=== PATIENT | female | born 1940 | race Caucasian/White ===

== ENCOUNTER → 2016-06-19 | Outpatient (CLI) | payer MEDICARE, BC ==
[~2016-06-19] MED LIST: ANTIVERT 25MG25 MG PO; AZOR 5 MG-40 MG1 TAB PO; AZULFIDINE500 MG/TAB PO; BYSTOLIC10 MG PO; BYSTOLIC5 MG PO; CALCIUM 600MG+D1 TAB PO; CALCIUM1 CAP PO; COUMADIN 1MG1 MG/TAB PO; COUMADIN 5MG5 MG/TAB PO; IMODIUMSUSP PO; K-DUR20 MEQ PO; LEVOXYL0.1 MG PO; LEXAPRO20 MG PO; LOMOTIL 0.025 M1 TAB PO; MULTAQ400 MG PO; PRAVACHOL 20MG20 MG PO; PROTONIX 40MG T40 MG PO; VALIUM 2MG T2 MG/TAB PO; VESICARE 5MG5 MG PO; VITAMIN D31 LIQ
== END ==
LOC: COL.VAS 08:53
DX: I70.1 Atherosclerosis of renal artery (principal); N13.39 Other hydronephrosis; I10 Essential (primary) hypertension

== ENCOUNTER → 2017-03-05 | Outpatient (CLI) | payer MEDICARE, BC | LOC: MC.RAD 10:00 | DX: Z98.82 Breast implant status (principal) ==

== ENCOUNTER → 2017-04-29 | Outpatient (CLI) | payer MEDICARE, BC ==
[~2017-04-29] MED LIST changes: +COUMADIN 2MG2 MG/TAB PO; +COZAAR100 MG PO; +LIORESAL 1010 MG/TAB PO; +NORVASC 5MG5 MG/TAB PO; +OS-CAL 500 + D1 TAB PO; +PRILOSEC 20MG20 MG PO; +SYNTHROID0.125 MG/T PO; +TAMBOCOR 1100 MG/TAB PO
== END ==
LOC: MHCPAIN 10:13
DX: G89.29 Other chronic pain (principal); M47.27 Other spondylosis with radiculopathy, lumbosacral region; M53.3 Sacrococcygeal disorders, not elsewhere classified; G57.00 Lesion of sciatic nerve, unspecified lower limb; F17.210 Nicotine dependence, cigarettes, uncomplicated
CPT/HCPCS: G0463

== ENCOUNTER → 2017-05-13 | Outpatient (CLI) | payer MEDICARE, BC | LOC: MHCPAIN 10:54 | DX: G57.03 Lesion of sciatic nerve, bilateral lower limbs (principal) | CPT/HCPCS: J1040 ==

== ENCOUNTER → 2017-06-12 | Outpatient (CLI) | payer MEDICARE, BC | LOC: MHCPAIN 10:32 | DX: G89.29 Other chronic pain (principal); M47.27 Other spondylosis with radiculopathy, lumbosacral region; M53.3 Sacrococcygeal disorders, not elsewhere classified; M41.9 Scoliosis, unspecified; F17.210 Nicotine dependence, cigarettes, uncomplicated | CPT/HCPCS: G0463 ==

== ENCOUNTER → 2017-07-07 | Outpatient (CLI) | payer MEDICARE, BC | LOC: MHCPAIN 11:19 | DX: G89.29 Other chronic pain (principal); M47.817 Spondylosis without myelopathy or radiculopathy, lumbosacral region; M54.16 Radiculopathy, lumbar region; M53.3 Sacrococcygeal disorders, not elsewhere classified; M41.9 Scoliosis, unspecified | CPT/HCPCS: G0463 ==

== ENCOUNTER → 2017-07-27 | Outpatient (CLI) | payer MEDICARE, BC | LOC: MHCPAIN 12:14 | DX: G57.01 Lesion of sciatic nerve, right lower limb (principal); M47.817 Spondylosis without myelopathy or radiculopathy, lumbosacral region | CPT/HCPCS: 64646; J0585 ==

== ENCOUNTER 2017-08-26 14:45 | Outpatient (RCR) | payer MEDICARE, BC | END 2017-09-07 | LOC: WSPT | DX: G89.29 Other chronic pain (principal); M54.16 Radiculopathy, lumbar region; G57.00 Lesion of sciatic nerve, unspecified lower limb; M53.3 Sacrococcygeal disorders, not elsewhere classified; M47.817 Spondylosis without myelopathy or radiculopathy, lumbosacral region; M25.552 Pain in left hip; M25.551 Pain in right hip | CPT/HCPCS: G8978-GP; G8979-GP ==

== ENCOUNTER → 2017-08-28 | Outpatient (CLI) | payer MEDICARE, BC | LOC: MHCPAIN 10:32 | DX: G89.29 Other chronic pain (principal); M47.817 Spondylosis without myelopathy or radiculopathy, lumbosacral region; M54.16 Radiculopathy, lumbar region; M53.3 Sacrococcygeal disorders, not elsewhere classified; M41.9 Scoliosis, unspecified | CPT/HCPCS: G0463 ==

== ENCOUNTER 2017-09-09 08:30 | Outpatient (RCR) | payer MEDICARE, BC | END 2017-09-12 09:28 | disposition home or self-care (01) | LOC: WSPT 08:30 | DX: G89.29 Other chronic pain (principal); M54.16 Radiculopathy, lumbar region; M53.3 Sacrococcygeal disorders, not elsewhere classified; M47.817 Spondylosis without myelopathy or radiculopathy, lumbosacral region ==

== ENCOUNTER → 2017-10-21 | Outpatient (CLI) | payer MEDICARE, BC | LOC: MHCPAIN 09:57 | DX: G89.29 Other chronic pain (principal); M47.817 Spondylosis without myelopathy or radiculopathy, lumbosacral region; M54.16 Radiculopathy, lumbar region; M53.3 Sacrococcygeal disorders, not elsewhere classified; M41.9 Scoliosis, unspecified | CPT/HCPCS: G0463 ==

== ENCOUNTER → 2018-01-29 | Outpatient (CLI) | payer MEDICARE, BC | LOC: MHCPAIN 10:39 | DX: G89.29 Other chronic pain (principal); M47.817 Spondylosis without myelopathy or radiculopathy, lumbosacral region; M54.16 Radiculopathy, lumbar region; M53.3 Sacrococcygeal disorders, not elsewhere classified | CPT/HCPCS: G0463 ==

== ENCOUNTER 2018-01-31 20:56 | Emergency (ER) | payer MEDICARE, BC ==
[~2018-01-31] VITALS: Ht 165.1 cm; Wt 65.0 kg
[2018-01-31 20:59] VITALS: TEMP 97.7
[2018-01-31 22:00] LABS: BASO # 0.1 (0.0-0.2); BASO % 1.3 % (0.0-2.0); EOS # 0.1 (0.0-0.7); EOS % 1.9 % (0-4.0); GRAN # 1.8 (1.4-6.5); HEMATOCRIT 38.7 % (37.0-47.0); HEMOGLOBIN 12.9 g/dl (12.5-16.0); LYMPH # 1.2 (1.2-3.4); LYMPH % 32.8 % (20.0-51.0); MEAN CELL VOLUME 94 fl (80.0-100.0); MEAN CORPUSCULAR HEMOGLOBIN 32 pg (27.0-31.0); MEAN CORPUSCULAR HGB CONC 33 g/dl (33.0-37.0); MEAN PLATELET VOLUME 9.4 fl (7.4-10.4); MONO # 0.6 (0.1-0.6); MONO % 15.5 % (1.7-9.3); PLATELET COUNT 246 K/mm3 (130-400); REDCELL DISTRIBUTION WIDTH-CV 13.2 % (11.5-14.5)
[2018-01-31 22:06] LABS: ALANINE AMINOTRANSFERASE 26 U/L (9-52); ALBUMIN 3.7 gm/dL (3.5-5.0); ALKALINE PHOSPHATASE 53 U/L (50-136); ANION GAP 5 mmol/L (7-16); AST,SGOT 27 U/L (15-37); BILIRUBIN,TOTAL 0.4 mg/dL (0.0-1.0); BLOOD UREA NITROGEN 12 mg/dL (7-17); CALCIUM 8.8 mg/dL (8.4-10.2); CARBON DIOXIDE 29 mmol/L (22-30); CHLORIDE 95 mmol/L (98-107); CREATININE, serum 0.59 mg/dL (0.52-1.25); GLUCOSE 94 mg/dL (74-106); INR 2.1 (0.8-3.0); POTASSIUM 3.8 mmol/L (3.4-5.0); PROTHROMBIN TIME 24.2 SECONDS (9.7-12.8); SODIUM 130 mmol/L (137-145); TOTAL PROTEIN 6.9 gm/dL (6.4-8.2)
[2018-01-31 22:23] LABS: TROPONIN-I < 0.012 ng/mL (0.000-0.034)
[2018-01-31 22:42] VITALS: BP 143/76; PULSE 62
== END 2018-01-31 22:54 | disposition home or self-care (01) ==
LOC: COL.ER 20:56
PROVIDERS: Emergency Medicine
DX: I10 Essential (primary) hypertension (principal); I48.91 Unspecified atrial fibrillation; E78.5 Hyperlipidemia, unspecified; Z79.01 Long term (current) use of anticoagulants; Z86.73 Personal history of transient ischemic attack (TIA), and cerebral infarction without residual deficits

== ENCOUNTER 2018-02-01 14:52 | Observation (INO) | payer MEDICARE, BC ==
[~2018-02-01] VITALS: Ht 165.1 cm; Wt 65.9 kg
[2018-02-01 15:50] VITALS: BP 113/62; PULSE 59
[2018-02-01 16:14] LABS: COLLECTION METHOD CLEAN CATCH
[2018-02-01 16:27] LABS: HYALINE CAST >12 /lpf; MUCOUS Present /lpf; PH 6 (5-8); SQUAMOUS EPITHELIAL None Seen /hpf; URINE APPEARANCE Clear; URINE BACTERIA None Seen /hpf; URINE BILIRUBIN Negative (NEGATIVE); URINE BLOOD Negative (NEGATIVE); URINE COLOR Yellow; URINE GLUCOSE Negative (NEGATIVE); URINE KETONE Negative (NEGATIVE); URINE LEUKOCYTE ESTERASE Negative (NEGATIVE); URINE NITRATE Negative (NEGATIVE); URINE PROTEIN(semi-quant) 1+ (NEGATIVE); URINE RBC 0-2 /hpf; URINE UROBILINOGEN Negative (NEGATIVE)
[2018-02-01 17:04] LABS: BASO % 0.7 % (0.0-2.0); EOS % 0.7 % (0-4.0); GRAN # 3.9 (1.4-6.5); GRAN % 71.9 % (42.2-75.2); HEMATOCRIT 37.1 % (37.0-47.0); HEMOGLOBIN 12.6 g/dl (12.5-16.0); LYMPH # 0.9 (1.2-3.4); LYMPH % 16.5 % (20.0-51.0); MEAN CELL VOLUME 92 fl (80.0-100.0); MEAN CORPUSCULAR HEMOGLOBIN 31 pg (27.0-31.0); MEAN CORPUSCULAR HGB CONC 34 g/dl (33.0-37.0); MEAN PLATELET VOLUME 9.2 fl (7.4-10.4); MONO # 0.5 (0.1-0.6); MONO % 9.8 % (1.7-9.3); PLATELET COUNT 221 K/mm3 (130-400); RED BLOOD COUNT 4.03 M/mm3 (4.10-5.30); REDCELL DISTRIBUTION WIDTH-CV 13.2 % (11.5-14.5)
[2018-02-01 17:16] LABS: ALANINE AMINOTRANSFERASE 29 U/L (9-52); ALBUMIN 3.6 gm/dL (3.5-5.0); ALKALINE PHOSPHATASE 47 U/L (50-136); ANION GAP 7 mmol/L (7-16); AST,SGOT 22 U/L (15-37); BILIRUBIN,TOTAL 0.3 mg/dL (0.0-1.0); BLOOD UREA NITROGEN 12 mg/dL (7-17); CALCIUM 8.7 mg/dL (8.4-10.2); CARBON DIOXIDE 30 mmol/L (22-30); CHLORIDE 95 mmol/L (98-107); GLUCOSE 91 mg/dL (74-106); MAGNESIUM 1.9 mg/dL (1.6-2.3); POTASSIUM 3.5 mmol/L (3.4-5.0); SODIUM 131 mmol/L (137-145); TOTAL PROTEIN 6.8 gm/dL (6.4-8.2)
[2018-02-01 17:24] VITALS: BP 150/68; PULSE 62; TEMP 98.2
[2018-02-01 17:31] LABS: TROPONIN-I < 0.012 ng/mL (0.000-0.034)
[2018-02-01 20:30] VITALS: BP 159/70; PULSE 66; TEMP 98.7
[2018-02-02 01:21] VITALS: BP 141/81; PULSE 59; TEMP 98.3
[2018-02-02 07:27] LABS: EOS # 0.1 (0.0-0.7); EOS % 1.8 % (0-4.0); GRAN # 1.7 (1.4-6.5); GRAN % 43.7 % (42.2-75.2); HEMATOCRIT 37.4 % (37.0-47.0); HEMOGLOBIN 12.4 g/dl (12.5-16.0); LYMPH # 1.6 (1.2-3.4); LYMPH % 38.9 % (20.0-51.0); MEAN CELL VOLUME 94 fl (80.0-100.0); MEAN CORPUSCULAR HEMOGLOBIN 31 pg (27.0-31.0); MEAN CORPUSCULAR HGB CONC 33 g/dl (33.0-37.0); MEAN PLATELET VOLUME 9.5 fl (7.4-10.4); MONO # 0.6 (0.1-0.6); MONO % 14.3 % (1.7-9.3); PLATELET COUNT 219 K/mm3 (130-400); RED BLOOD COUNT 3.98 M/mm3 (4.10-5.30); REDCELL DISTRIBUTION WIDTH-CV 13.2 % (11.5-14.5)
[2018-02-02 07:37] LABS: ANION GAP 6 mmol/L (7-16); BLOOD UREA NITROGEN 9 mg/dL (7-17); CALCIUM 8.3 mg/dL (8.4-10.2); CARBON DIOXIDE 27 mmol/L (22-30); CHLORIDE 103 mmol/L (98-107); CREATININE, serum 0.55 mg/dL (0.52-1.25); GLUCOSE 89 mg/dL (74-106); SODIUM 136 mmol/L (137-145)
[2018-02-02 07:43] LABS: INR 2.2 (0.8-3.0)
[2018-02-02 07:47] LABS: TROPONIN-I < 0.012 ng/mL (0.000-0.034)
[2018-02-02 08:09] VITALS: BP 160/75; PULSE 55; TEMP 97.8
[2018-02-02 11:50] VITALS: BP 162/71; PULSE 55; TEMP 98.8
== END 2018-02-02 13:30 | disposition home or self-care (01) ==
LOC: COL.ER 14:52 → MEDICAL 16:08
PROVIDERS: Emergency Medicine; Physician Assistant
DX: R55 Syncope and collapse (principal); I10 Essential (primary) hypertension; I48.0 Paroxysmal atrial fibrillation; E78.5 Hyperlipidemia, unspecified; F32.9 Major depressive disorder, single episode, unspecified; E03.9 Hypothyroidism, unspecified; I95.9 Hypotension, unspecified; H81.09 Meniere's disease, unspecified ear; I34.0 Nonrheumatic mitral (valve) insufficiency; Z79.01 Long term (current) use of anticoagulants; Z87.891 Personal history of nicotine dependence; Z88.0 Allergy status to penicillin
CPT/HCPCS: G0378; J7030

== ENCOUNTER 2018-03-01 09:10 | Day surgery (SDC) | payer MEDICARE, BC ==
[~2018-03-01] VITALS: Ht 165.2 cm; Wt 66.0 kg
[2018-03-01 09:29] VITALS: BP 171/84; PULSE 60; TEMP 98.6
[2018-03-01 09:33] VITALS: BP 171/84; PULSE 60; TEMP 98.6
[2018-03-01] MEDS ORDERED: COUMADIN 1MG1 MG/TAB PO (10:14)
[2018-03-01] MEDS ORDERED: CLEOCIN HCL300 MG PO (11:15)
== END 2018-03-01 12:00 | disposition home or self-care (01) ==
LOC: COL.CAR 09:10
DX: I48.0 Paroxysmal atrial fibrillation (principal); I10 Essential (primary) hypertension; I65.29 Occlusion and stenosis of unspecified carotid artery; I70.1 Atherosclerosis of renal artery; E03.9 Hypothyroidism, unspecified; E78.2 Mixed hyperlipidemia; F32.9 Major depressive disorder, single episode, unspecified; Z88.5 Allergy status to narcotic agent; Z88.0 Allergy status to penicillin; Z79.01 Long term (current) use of anticoagulants; Z87.891 Personal history of nicotine dependence; Z86.73 Personal history of transient ischemic attack (TIA), and cerebral infarction without residual deficits; Z80.3 Family history of malignant neoplasm of breast; Z83.3 Family history of diabetes mellitus; Z82.49 Family history of ischemic heart disease and other diseases of the circulatory system; Z84.1 Family history of disorders of kidney and ureter
CPT/HCPCS: 27124; C1764

== ENCOUNTER 2018-06-29 19:47 | Emergency (ER) | payer MEDICARE, BC ==
[~2018-06-29] VITALS: Ht 165.1 cm; Wt 65.0 kg
[~2018-06-29 19:47] MED LIST changes: +CLEOCIN HCL300 MG PO
[2018-06-29 19:49] VITALS: TEMP 97
[2018-06-29 20:10] LABS: BASO # 0.1 (0.0-0.2); BASO % 0.9 % (0.0-2.0); EOS # 0.1 (0.0-0.7); EOS % 2.1 % (0-4.0); GRAN # 4.4 (1.4-6.5); GRAN % 65.4 % (42.2-75.2); HEMATOCRIT 40.8 % (37.0-47.0); HEMOGLOBIN 13.9 g/dl (12.5-16.0); LYMPH # 1.5 (1.2-3.4); LYMPH % 22.4 % (20.0-51.0); MEAN CELL VOLUME 93 fl (80.0-100.0); MEAN CORPUSCULAR HEMOGLOBIN 32 pg (27.0-31.0); MEAN CORPUSCULAR HGB CONC 34 g/dl (33.0-37.0); MEAN PLATELET VOLUME 9.6 fl (7.4-10.4); MONO # 0.5 (0.1-0.6); PLATELET COUNT 230 K/mm3 (130-400); RED BLOOD COUNT 4.41 M/mm3 (4.10-5.30)
[2018-06-29 20:13] LABS: INR 3.3 (0.8-3.0); PROTHROMBIN TIME 37.2 SECONDS (9.7-12.8)
[2018-06-29 20:17] LABS: ALANINE AMINOTRANSFERASE 26 U/L (9-52); ALBUMIN 4.3 gm/dL (3.5-5.0); ALKALINE PHOSPHATASE 67 U/L (50-136); ANION GAP 9 mmol/L (7-16); AST,SGOT 33 U/L (15-37); BILIRUBIN,TOTAL 0.3 mg/dL (0.0-1.0); BLOOD UREA NITROGEN 15 mg/dL (7-17); CALCIUM 9.3 mg/dL (8.4-10.2); CARBON DIOXIDE 27 mmol/L (22-30); CHLORIDE 97 mmol/L (98-107); CREATININE, serum 0.68 mg/dL (0.52-1.25); GLUCOSE 89 mg/dL (74-106); POTASSIUM 4.1 mmol/L (3.4-5.0); SODIUM 133 mmol/L (137-145); TOTAL PROTEIN 7.6 gm/dL (6.4-8.2)
[2018-06-29 20:29] LABS: TROPONIN-I < 0.012 ng/mL (0.000-0.035)
[2018-06-29 23:34] VITALS: BP 146/71; PULSE 65
== END 2018-06-29 23:37 | disposition home or self-care (01) ==
LOC: COL.ER 19:47
PROVIDERS: Emergency Medicine
DX: S00.93XA Contusion of unspecified part of head, initial encounter (principal); S30.0XXA Contusion of lower back and pelvis, initial encounter; I48.91 Unspecified atrial fibrillation; I10 Essential (primary) hypertension; E78.5 Hyperlipidemia, unspecified; E03.9 Hypothyroidism, unspecified; Z87.891 Personal history of nicotine dependence; Z79.01 Long term (current) use of anticoagulants; W18.39XA Other fall on same level, initial encounter; Y92.009 Unspecified place in unspecified non-institutional (private) residence as the place of occurrence of the external cause
CPT/HCPCS: J1885; J2405; J3010

== ENCOUNTER 2018-07-20 12:40 | Outpatient (RCR) | payer MEDICARE, BC | END 2018-09-03 11:45 | disposition home or self-care (01) | LOC: WSC 12:40 | DX: M54.6 Pain in thoracic spine (principal); R26.89 Other abnormalities of gait and mobility ==

== ENCOUNTER → 2018-07-28 | Outpatient (CLI) | payer MEDICARE, BC | LOC: MHCPAIN 10:06 | DX: G89.29 Other chronic pain (principal); M47.817 Spondylosis without myelopathy or radiculopathy, lumbosacral region; M54.16 Radiculopathy, lumbar region; M53.3 Sacrococcygeal disorders, not elsewhere classified; M41.9 Scoliosis, unspecified | CPT/HCPCS: G0463 ==

== ENCOUNTER → 2018-11-23 | Outpatient (CLI) | payer MEDICARE, BC | LOC: MHCPAIN 10:48 | DX: G89.29 Other chronic pain (principal); M47.817 Spondylosis without myelopathy or radiculopathy, lumbosacral region; M54.16 Radiculopathy, lumbar region; M53.3 Sacrococcygeal disorders, not elsewhere classified | CPT/HCPCS: G0463 ==

== ENCOUNTER → 2018-11-24 | Outpatient (CLI) | payer MEDICARE, BC | LOC: MHCPAIN 11:06 | DX: M25.551 Pain in right hip (principal) | CPT/HCPCS: J1040 ==

== ENCOUNTER → 2019-03-28 | Outpatient (CLI) | payer MEDICARE, BC | LOC: COL.VAS 09:00 | DX: I65.21 Occlusion and stenosis of right carotid artery (principal) ==

== ENCOUNTER → 2019-06-08 | Outpatient (CLI) | payer MEDICARE, BC ==
[~2019-06-08] MED LIST changes: +PRAVACHOL 40MG40 MG PO
== END ==
LOC: MHCPAIN 09:51
DX: M47.817 Spondylosis without myelopathy or radiculopathy, lumbosacral region (principal); M54.16 Radiculopathy, lumbar region
CPT/HCPCS: G0463

== ENCOUNTER 2019-06-10 11:46 | Observation (INO) | payer MEDICARE, BC ==
[~2019-06-10] VITALS: Ht 165.1 cm; Wt 62.5 kg
[~2019-06-10 11:46] MED LIST changes: -PRAVACHOL 40MG40 MG PO
[2019-06-10 12:38] LABS: COLLECTION METHOD CLEAN CATCH
[2019-06-10 12:53] LABS: BASO # 0.1 (0.0-0.2); BASO % 1.4 % (0.0-2.0); EOS # 0.1 (0.0-0.7); EOS % 1.8 % (0-4.0); GRAN # 2.9 (1.4-6.5); GRAN % 58.9 % (42.2-75.2); HEMATOCRIT 42.2 % (37.0-47.0); LYMPH # 1.3 (1.2-3.4); LYMPH % 26.2 % (20.0-51.0); MEAN CELL VOLUME 93 fl (80.0-100.0); MEAN CORPUSCULAR HEMOGLOBIN 31 pg (27.0-31.0); MEAN CORPUSCULAR HGB CONC 33 g/dl (33.0-37.0); MEAN PLATELET VOLUME 9.8 fl (7.4-10.4); MONO # 0.6 (0.1-0.6); MONO % 11.5 % (1.7-9.3); PLATELET COUNT 250 K/mm3 (130-400); RED BLOOD COUNT 4.53 M/mm3 (4.10-5.30); REDCELL DISTRIBUTION WIDTH-CV 12.8 % (11.5-14.5)
[2019-06-10 12:53] LABS: PH 7 (5-8); SQUAMOUS EPITHELIAL None Seen /hpf; URINE APPEARANCE Clear; URINE BACTERIA None Seen /hpf; URINE BILIRUBIN Negative (NEGATIVE); URINE BLOOD 1+ (NEGATIVE); URINE COLOR Colorless; URINE GLUCOSE Negative (NEGATIVE); URINE KETONE Negative (NEGATIVE); URINE LEUKOCYTE ESTERASE Negative (NEGATIVE); URINE NITRATE Negative (NEGATIVE); URINE PROTEIN(semi-quant) Negative (NEGATIVE); URINE RBC 0-2 /hpf; URINE UROBILINOGEN Negative (NEGATIVE)
[2019-06-10 12:57] LABS: INR 1.5 (0.8-3.0); PROTHROMBIN TIME 17.2 SECONDS (9.7-12.8)
[2019-06-10 12:59] LABS: ALANINE AMINOTRANSFERASE 18 U/L (9-52); ALBUMIN 4.4 gm/dL (3.5-5.0); ALKALINE PHOSPHATASE 64 U/L (50-136); ANION GAP 9 mmol/L (7-16); AST,SGOT 28 U/L (15-37); BILIRUBIN,TOTAL 0.8 mg/dL (0.0-1.0); BLOOD UREA NITROGEN 12 mg/dL (7-17); CALCIUM 9.3 mg/dL (8.4-10.2); CARBON DIOXIDE 30 mmol/L (22-30); CHLORIDE 96 mmol/L (98-107); CREATININE, serum 0.62 (0.52-1.25); GLUCOSE 94 mg/dL (74-106); LIPASE 78 U/L (23-300); POTASSIUM 3.4 mmol/L (3.4-5.0); SODIUM 135 mmol/L (137-145); TOTAL PROTEIN 7.8 gm/dL (6.4-8.2)
[2019-06-10 13:11] LABS: TROPONIN-I < 0.012 ng/mL (0.000-0.035)
[2019-06-10 17:25] VITALS: BP 161/77; PULSE 61; TEMP 98.7
[2019-06-10] MEDS ORDERED: COUMADIN 5MG5 MG/TAB PO (18:21)
[2019-06-10] MEDS ORDERED: COUMADIN 1MG1 MG/TAB PO (18:25)
[2019-06-10] MEDS ORDERED: COUMADIN 2MG2 MG/TAB PO (18:27)
--- NOTE | 2019-06-10 18:50 | NUR ---
PT report received at bedside from dayshift RN. PT denies pain, want, or needs at this time. Call light within reach. Will continue to monitor.
--- NOTE | 2019-06-10 19:26 | NUR ---
Pt arrived to floor this afternoon, no noticable deficit from left to right on neuro checks, initial assessments completed.
--- NOTE | 2019-06-10 19:36 | NUR ---
Warfarin Initial Dosing Pharmacy Note Ordering Provider: Kyleigh Olsen MD Indication: Atrial fibrillation LABS: INR 1.5 Recommendation: Will give Warfarin 8 mg po tonight as INR subtherapeutic. Pharmacy will continue to monitor daily INR levels. Home Regimen: Warfarin 7 mg po MoWeFr and Warfarin 6 mg po [id number]
[2019-06-10 20:27] VITALS: BP 133/67; PULSE 62; TEMP 98.1
[2019-06-11 00:23] VITALS: BP 111/66; PULSE 57; TEMP 98.3
--- NOTE | 2019-06-11 00:40 | NUR ---
PT resting in bed with eyes closed, restign peacefully with no s/s of distress noted. Will continue to monitor.
[2019-06-11 04:20] VITALS: BP 155/90; PULSE 57; TEMP 98
[2019-06-11 06:28] LABS: BASO # 0.1 (0.0-0.2); BASO % 1.8 % (0.0-2.0); EOS # 0.2 (0.0-0.7); EOS % 3.8 % (0-4.0); GRAN # 2.3 (1.4-6.5); GRAN % 50.1 % (42.2-75.2); HEMATOCRIT 39.4 % (37.0-47.0); HEMOGLOBIN 13.3 g/dl (12.5-16.0); LYMPH # 1.4 (1.2-3.4); LYMPH % 30.8 % (20.0-51.0); MEAN CELL VOLUME 93 fl (80.0-100.0); MEAN CORPUSCULAR HEMOGLOBIN 31 pg (27.0-31.0); MEAN CORPUSCULAR HGB CONC 34 g/dl (33.0-37.0); MEAN PLATELET VOLUME 9.3 fl (7.4-10.4); MONO # 0.6 (0.1-0.6); MONO % 12.6 % (1.7-9.3); PLATELET COUNT 269 K/mm3 (130-400); RED BLOOD COUNT 4.26 M/mm3 (4.10-5.30); REDCELL DISTRIBUTION WIDTH-CV 12.7 % (11.5-14.5)
[2019-06-11 06:41] LABS: CALCIUM 9.3 mg/dL (8.4-10.2); CHOLESTEROL RISK RATIO 2.8; CREATININE, serum 0.64 (0.52-1.25)
[2019-06-11 07:09] LABS: TSH w REFLEX 1.47 uIU/mL (0.465-4.680)
[2019-06-11 07:40] VITALS: BP 157/82; PULSE 64; TEMP 98.3
--- NOTE | 2019-06-11 08:06 | NUR ---
IN TO ASSESS AND OBTAIN VITALS ON PATIENT AT 0734. PATIENT WAS RESTING IN BED AT THAT TIME WITH NO COMPLAINTS AND DENIES ANY SHORTNESS OF BREATH, NAUSEA, VOMITING, OR DIZZINESS. NO SIGNS/SYMPTOMS OF ANY NEUROLOGICAL DISTRESS. PATIENT THEN UP TO THE BATHROOM, VERY STEADY ON HER FEET. PATIENT IS ALERT AND ORIENTATED X4.
[2019-06-11 09:21] VITALS: BP 148/83; PULSE 65; TEMP 98.2
--- NOTE | 2019-06-11 09:39 | NUR ---
PATIENT CALLED OUT AND STATED THAT HER HEAD FELT FUZZY/NOT RIGHT. VITAL SIGNS WERE OBTAINED AND SHE WAS ABLE TO ANSWER WHAT YEAR IT WAS, WHERE SHE WAS, & WHO SHE WAS. PUPILS WERE EQUAL AND BILATERAL. AFTER ASSESSMENT, NO ISSUES WERE NOTED CHANGED ON THE PATIENT AT THIS TIME. NO OTHER ISSUES AT THIS TIME NOW SINCE AN ASSESSMENT WAS DONE ON HER. PATIENT IS RESTING IN BED WITH HER CALL LIGHT WITHIN REACH, COFFEE AND WATER ON BEDSIDE TABLE.
[2019-06-11 10:14] LABS: INR 1.2 (0.8-3.0); PROTHROMBIN TIME 14.2 SECONDS (9.7-12.8)
[2019-06-11] MEDS ORDERED: COUMADIN 5MG5 MG/TAB PO (11:32)
[2019-06-11] MEDS ORDERED: COUMADIN 2MG2 MG/TAB PO (11:32)
[2019-06-11] MEDS ORDERED: PRAVACHOL 40MG40 MG PO (11:33)
--- NOTE | 2019-06-11 14:41 | NUR ---
Plan to DC home. Patient reports that her PCP is Dr. Johanna Ward with upcoming appointment on Thursday the . Patient reports that she can transport herself home but her sister will help her. Patient reports that she does not use any DME and plans to contact her for follow up on thursday. Patient declined any additonal supports and stated she is ready to go and waiting on the nurse to unhook her. Patient indicated there are not other concerns.
== END 2019-06-11 12:40 | disposition home or self-care (01) ==
LOC: COL.ER 11:46 → MEDICAL 13:44
PROVIDERS: Emergency Medicine; ADMIT Student in an Organized Health Care Education/Training Program
DX: H53.8 Other visual disturbances (principal); I48.91 Unspecified atrial fibrillation; I10 Essential (primary) hypertension; E78.5 Hyperlipidemia, unspecified; E03.9 Hypothyroidism, unspecified; F32.9 Major depressive disorder, single episode, unspecified; Z88.0 Allergy status to penicillin; Z79.01 Long term (current) use of anticoagulants; Z87.891 Personal history of nicotine dependence
CPT/HCPCS: G0378

== ENCOUNTER → 2019-07-04 | Outpatient (CLI) | payer MEDICARE, BC ==
[~2019-07-04] MED LIST changes: +PRAVACHOL 40MG40 MG PO
== END ==
LOC: COL.VAS 08:48
DX: I15.0 Renovascular hypertension (principal)

== ENCOUNTER → 2019-10-18 | Outpatient (CLI) | payer MEDICARE, BC | LOC: COL.RAD 11:28 | DX: G44.219 Episodic tension-type headache, not intractable (principal); G31.84 Mild cognitive impairment of uncertain or unknown etiology; I67.82 Cerebral ischemia ==

== ENCOUNTER 2020-08-29 17:17 | Emergency (ER) | payer MEDICARE, BC ==
[~2020-08-29] VITALS: Ht 165.1 cm; Wt 68.2 kg
[2020-08-29 17:25] VITALS: TEMP 97.7
[2020-08-29 18:27] LABS: BASO # 0.1 (0.0-0.2); EOS # 0.2 (0.0-0.7); EOS % 3.1 % (0-4.0); GRAN # 2.5 (1.4-6.5); GRAN % 52.5 % (42.2-75.2); HEMATOCRIT 38.2 % (37.0-47.0); HEMOGLOBIN 12.7 g/dl (12.5-16.0); LYMPH # 1.5 (1.2-3.4); LYMPH % 31.8 % (20.0-51.0); MEAN CELL VOLUME 94 fl (80.0-100.0); MEAN CORPUSCULAR HEMOGLOBIN 31 pg (27.0-31.0); MEAN CORPUSCULAR HGB CONC 33 g/dl (33.0-37.0); MEAN PLATELET VOLUME 9.7 fl (7.4-10.4); MONO # 0.6 (0.1-0.6); MONO % 11.4 % (1.7-9.3); PLATELET COUNT 250 K/mm3 (130-400); RED BLOOD COUNT 4.07 M/mm3 (4.10-5.30); REDCELL DISTRIBUTION WIDTH-CV 13.2 % (11.5-14.5)
[2020-08-29 18:35] LABS: INR 3.6 (0.8-3.0); PROTHROMBIN TIME 41.3 SECONDS (9.7-12.8)
[2020-08-29 18:38] LABS: PARTIAL THROMBOPLASTIN TIME 49.2 SECONDS (26.0-37.0)
[2020-08-29 19:15] LABS: ALANINE AMINOTRANSFERASE 14 U/L (4-34); ALBUMIN 3.9 gm/dL (3.5-5.0); ALKALINE PHOSPHATASE 49 U/L (50-136); ANION GAP 5 mmol/L (7-16); AST,SGOT 26 U/L (15-37); BILIRUBIN,TOTAL 0.1 mg/dL (0.0-1.0); BLOOD UREA NITROGEN 15 mg/dL (7-17); CALCIUM 9.5 mg/dL (8.4-10.2); CARBON DIOXIDE 32 mmol/L (22-30); CHLORIDE 95 mmol/L (98-107); CREATININE, serum 0.72 (0.52-1.25); GLUCOSE 111 mg/dL (74-106); POTASSIUM 3.8 mmol/L (3.4-5.0); SODIUM 132 mmol/L (137-145); TOTAL PROTEIN 7.1 gm/dL (6.4-8.2)
[2020-08-29 19:29] LABS: TROPONIN-I < 0.012 ng/mL (0.000-0.035)
[2020-08-29 19:49] LABS: COLLECTION METHOD CLEAN CATCH
[2020-08-29 19:59] LABS: PH 7 (5-8); SQUAMOUS EPITHELIAL None Seen /hpf; URINE APPEARANCE Clear; URINE BACTERIA None Seen /hpf; URINE BILIRUBIN Negative (NEGATIVE); URINE BLOOD 1+ (NEGATIVE); URINE COLOR Colorless; URINE GLUCOSE Negative (NEGATIVE); URINE KETONE Negative (NEGATIVE); URINE LEUKOCYTE ESTERASE Negative (NEGATIVE); URINE NITRATE Negative (NEGATIVE); URINE PROTEIN(semi-quant) Negative (NEGATIVE); URINE RBC 0-2 /hpf; URINE UROBILINOGEN Negative (NEGATIVE)
[2020-08-29 20:15] VITALS: BP 151/89; PULSE 70
== END 2020-08-29 20:19 | disposition home or self-care (01) ==
LOC: COL.ER 17:17
PROVIDERS: Emergency Medicine; Family Medicine
DX: I48.91 Unspecified atrial fibrillation (principal); E87.1 Hypo-osmolality and hyponatremia; E03.9 Hypothyroidism, unspecified; I10 Essential (primary) hypertension; E78.5 Hyperlipidemia, unspecified; F32.9 Major depressive disorder, single episode, unspecified; I48.0 Paroxysmal atrial fibrillation; Z87.891 Personal history of nicotine dependence; Z88.0 Allergy status to penicillin; Z79.01 Long term (current) use of anticoagulants; Z79.890 Hormone replacement therapy

== ENCOUNTER 2020-12-02 13:41 | Inpatient (IN) | payer MEDICARE, BC ==
[~2020-12-02] VITALS: Ht 165.1 cm; Wt 68.2 kg
[2020-12-02 15:12] LABS: BASO % 0.5 % (0.0-2.0); EOS # 0.1 (0.0-0.7); EOS % 0.8 % (0-4.0); GRAN # 4.8 (1.4-6.5); GRAN % 75.5 % (42.2-75.2); LYMPH % 15.2 % (20.0-51.0); MEAN CELL VOLUME 94 fl (80.0-100.0); MEAN CORPUSCULAR HEMOGLOBIN 31 pg (27.0-31.0); MEAN CORPUSCULAR HGB CONC 33 g/dl (33.0-37.0); MEAN PLATELET VOLUME 9.2 fl (7.4-10.4); MONO # 0.5 (0.1-0.6); MONO % 7.4 % (1.7-9.3); PLATELET COUNT 207 K/mm3 (130-400); RED BLOOD COUNT 3.84 M/mm3 (4.10-5.30); REDCELL DISTRIBUTION WIDTH-CV 13.5 % (11.5-14.5)
[2020-12-02 15:17] LABS: HEMATOCRIT 35.9 % (37.0-47.0)
[2020-12-02 15:21] LABS: PROTHROMBIN TIME 22.2 SECONDS (9.7-12.8)
[2020-12-02 15:25] LABS: ALBUMIN 2.7 gm/dL (3.5-5.0); BILIRUBIN,TOTAL 0.4 mg/dL (0.0-1.0); CALCIUM 6.5 mg/dL (8.4-10.2); CREATININE, serum 0.44 (0.52-1.25); TOTAL PROTEIN 5.1 gm/dL (6.4-8.2)
[2020-12-02 15:33] LABS: POTASSIUM 2.8 mmol/L (3.4-5.0)
[2020-12-02 17:15] VITALS: BP 169/68; PULSE 63; TEMP 97.8
--- NOTE | 2020-12-02 17:15 | NUR ---
PATIENT ADMITED INTO ROOM 344 FROM ER WITH RLE HIP FX. A&O. PATIENT REPORTS SHE FELL AT HOME. C/O PAIN IN RLE WITH MOVEMENT BUT BETTER AT REST. TEDS & SDC'S TO LLE. POSITIVE PEDAL PULSES TO BLE. DRAKE TO DD WITH MOD AMOUNTS OF CLEAR YELLOW URINE NOTED. IV FLUIDS INFUSING INTO LEFT AC IV VIA PUMP. NO C/O N/V AT THIS TIME. HEAD TO TOE ASSESSMENT COMPLETE. PATIENT HAS HX OF A-FIB AND IS ON CHRONIC COUMADIN. GAVE VITAMIN K PER ORDERS. CONSULTS NOTIFIED. NO OTHER NEEDS AT THIS TIME. CALL LIGHT IN REACH.
--- NOTE | 2020-12-02 17:35 | NUR ---
LAB AT BEDSIDE
[2020-12-02 18:03] LABS: COLLECTION METHOD CLEAN CATCH
[2020-12-02 18:09] LABS: MUCOUS Present /lpf; PH 8 (5-8); SQUAMOUS EPITHELIAL None Seen /hpf; URINE APPEARANCE Clear; URINE BACTERIA None Seen /hpf; URINE BILIRUBIN Negative (NEGATIVE); URINE BLOOD Negative (NEGATIVE); URINE COLOR Straw; URINE GLUCOSE Negative (NEGATIVE); URINE KETONE Negative (NEGATIVE); URINE LEUKOCYTE ESTERASE Negative (NEGATIVE); URINE NITRATE Negative (NEGATIVE); URINE PROTEIN(semi-quant) Negative (NEGATIVE); URINE RBC 0-2 /hpf; URINE UROBILINOGEN Negative (NEGATIVE)
--- NOTE | 2020-12-02 19:59 | NUR ---
PT YELLING OUT IN PAIN, RT LEG HAS SPASMS. MEDICATED WITH MORPHINE 2MG IVP AT THIS TIME. ATTEMPTING TO DRINK POTASSIUM SUPPLEMENT WITHOUT MUCH SUCCESS. IVF TO LEFT AC, INFUSING WITHOUT DIFFICULTY.
--- NOTE | 2020-12-02 20:45 | NUR ---
NOTIFIED ANDREI DHILLON OF PT NOT ABLE TO TOLERATE PO POTASSIUM, NEW ORDERS GIVEN.
--- NOTE | 2020-12-02 20:45 | NUR ---
NOTIFIED SONI DHILLON NOTIFIED OF PTS CONTINUED PAIN WITH CURRENT PAIN REGIMEN.
[2020-12-02 21:07] VITALS: BP 135/59; PULSE 60; TEMP 97.6
--- NOTE | 2020-12-02 22:11 | NUR ---
MEDICATED WITH MORPHINE 2MG IVP FOR PAIN. REDRESSED RT ELBOW AND RT WRIST/FOREARM SKIN TEARS WITH STERI STRIPS AND TELFA. PT IS ALERT, ORIENTED X3. IV POTASSIUM INFUSING WITHOUT PROBLEM.
--- NOTE | 2020-12-02 23:09 | NUR ---
MEDICATED WITH OXYCODONE 5MG PO FOR PAIN/SPASMS TO RIGHT THIGH.
[2020-12-02 23:30] VITALS: BP 157/79; PULSE 63; TEMP 97.9
[2020-12-03] VITALS (8 sets, daily range): BP systolic 107–170; BP diastolic 55–86; PULSE 60–69; TEMP 97.5–99.2
--- NOTE | 2020-12-03 00:14 | NUR ---
MORPHINE 4MG IVP FOR PAIN 10/ TO RT LEG.
--- NOTE | 2020-12-03 00:14 | NUR ---
NOTIFIED SONI DHILLON OF PTS CONTINUED PAIN WITH CURRENT PAIN REGIMEN, NEW ORDERS GIVEN.
--- NOTE | 2020-12-03 02:36 | NUR ---
PT TAKING ICE CHIPS FOR DRY MOUTH. MEDICATED WITH MORPHINE 4MG IVP FOR PAIN/SPASMS TO RT LEG.
--- NOTE | 2020-12-03 05:26 | NUR ---
MEDICATED WITH SCHEDULED AM MEDS INCLUDING OXYCODONE 5MG AND MORPHINE 4MG IVP NOW FOR RT HIP/LEG PAIN.
[2020-12-03 07:00] LABS: BASO % 0.4 % (0.0-2.0); EOS # 0.1 (0.0-0.7); EOS % 0.9 % (0-4.0); GRAN # 5.8 (1.4-6.5); GRAN % 70.2 % (42.2-75.2); HEMATOCRIT 40.1 % (37.0-47.0); HEMOGLOBIN 13.2 g/dl (12.5-16.0); LYMPH # 1.4 (1.2-3.4); LYMPH % 17.5 % (20.0-51.0); MEAN CELL VOLUME 93 fl (80.0-100.0); MEAN CORPUSCULAR HEMOGLOBIN 31 pg (27.0-31.0); MEAN CORPUSCULAR HGB CONC 33 g/dl (33.0-37.0); MEAN PLATELET VOLUME 9.6 fl (7.4-10.4); MONO # 0.8 (0.1-0.6); MONO % 10.3 % (1.7-9.3); PLATELET COUNT 233 K/mm3 (130-400); REDCELL DISTRIBUTION WIDTH-CV 13.6 % (11.5-14.5)
--- NOTE | 2020-12-03 08:00 | NUR ---
PATIENT IS ORIENTED BUT VERY DROWSY THIS AM. ADVERTISING ASSOCIATE REPORTED PAIN ISSUES OVER NIGHT AND PATIENT RECEIVED SEVERAL NARCOTICS TO MANAGE PAIN. PATIENT IS RESTING COMFORTABLY THIS AM. NOTED ELEVATED B/P OF 150-170'S SYSTOLIC, AM B/P MEDS GIVEN WITH A FEW SIPS. ALL OTHER VSS. PATIENT RESTING IN BED WITH PILLOW UNDER RIGHT KNEE AND ICE PACK TO RIGHT HIP. TEDS TO LLE. SCD'S TO BLE. POSITIVE PEDAL PULSES TO BLE. DRAKE TO DD WITH MOD AMOUNTS OF CLEAR YELLOW URINE NOTED. IV FLUIDS INFUSING INTO LEFT AC VIA PUMP. NO C/O N/V. HEAD TO TOE ASSESSMENT COMPLETE. NPO FOR POSSIBLE SURGERY TODAY. AWAITING CARDIOLOGY CLEARANCE. NO OTHER NEEDS AT THIS TIME. CALL LIGHT IN REACH.
[2020-12-03 08:46] LABS: CALCIUM 9.2 mg/dL (8.4-10.2); CREATININE, serum 0.59 (0.52-1.25); MAGNESIUM 1.8 mg/dL (1.6-2.3); POTASSIUM 4.9 mmol/L (3.4-5.0)
[2020-12-03 09:48] LABS: INR 1.3 (0.8-3.0); PROTHROMBIN TIME 14.2 SECONDS (9.7-12.8)
--- NOTE | 2020-12-03 12:03 | NUR ---
Sw met with the pt, Sister (Bárbara reynoso) who stated her preference to return home once medically stable, pending Dr recommendations. Sw asked pt if it was okay to speak infont of guest due to HIPPA, pt agreed. Pt person to contact is Renetta Mccormick (ph# [phone]). The pt lives at home alone, she is and her lives in a assisted living. The sister stated she is independent on all ADLs and does not use any DME. The pt states she uses [facility] for her medications and has no troubles with cost. The pt PCP is Johanna Ward. The pt informed Sw that she has used HH services before and will reach out if she needed them again. The pt sister belives she has a DPAO-HC, the pt did not answer. The pt is/was drowsy and struggled to speak at times. Sw to await further recommendations and follow up as needed. No other needs stated at this time. D/C: Plan is home
--- NOTE | 2020-12-03 12:13 | NUR ---
PATIENT GOING DOWN TO OR VIA BED. SISTER IS AT BEDSIDE. [id number] CALLED AND GIVEN PATIENT STATUS UPDATE PER REQUEST. CONSENT ON CHART. IV FLUIDS INFUSING VIA GRAVITY. PATIENT OFF FLOOR.
--- NOTE | 2020-12-03 15:00 | NUR ---
PATIENT BACK IN ROOM POST OP. ORIENTED BUT DROWSY. VSS. FAMILY AT BEDSIDE. CALL LIGHT IN REACH.
--- NOTE | 2020-12-03 21:00 | NUR ---
Initial shift assessment done- denies pain at this time, has been resting, VSS, using IS ,up to 1200,, IV fluids of NS at 75cc/hr, TEDS/SCDS on, ice to right hip, dressings x3 dry and intact, o2 at 2L/nc, Hernandez with clear yellow urine. No requests at this time.
[2020-12-04 01:03] VITALS: BP 150/67; PULSE 68; TEMP 98.6
[2020-12-04 04:57] VITALS: BP 147/71; PULSE 69; TEMP 98.4
--- NOTE | 2020-12-04 05:06 | NUR ---
Quiet night-- States [place] has been effective for pain relief- remains on o2 at 2L/nc, good output from Hernandez, IV fluids remain NS at 75cc/hr. Right hip dressings dry and intact- refusing ice to hip
[2020-12-04 07:24] LABS: BASO % 0.4 % (0.0-2.0); EOS # 0.1 (0.0-0.7); EOS % 1.3 % (0-4.0); GRAN # 4.7 (1.4-6.5); GRAN % 68.7 % (42.2-75.2); HEMOGLOBIN 11.9 g/dl (12.5-16.0); LYMPH # 1.3 (1.2-3.4); LYMPH % 18.2 % (20.0-51.0); MEAN CELL VOLUME 93 fl (80.0-100.0); MEAN CORPUSCULAR HEMOGLOBIN 32 pg (27.0-31.0); MEAN CORPUSCULAR HGB CONC 34 g/dl (33.0-37.0); MEAN PLATELET VOLUME 10.2 fl (7.4-10.4); MONO # 0.8 (0.1-0.6); PLATELET COUNT 176 K/mm3 (130-400); RED BLOOD COUNT 3.77 M/mm3 (4.10-5.30); REDCELL DISTRIBUTION WIDTH-CV 13.7 % (11.5-14.5)
[2020-12-04 07:27] LABS: HEMATOCRIT 35.2 % (37.0-47.0)
[2020-12-04 07:34] LABS: INR 1.1 (0.8-3.0); PROTHROMBIN TIME 12.2 SECONDS (9.7-12.8)
[2020-12-04 07:35] LABS: ALBUMIN 3.1 gm/dL (3.5-5.0); BILIRUBIN,TOTAL 0.6 mg/dL (0.0-1.0); CREATININE, serum 0.54 (0.52-1.25); POTASSIUM 3.8 mmol/L (3.4-5.0); TOTAL PROTEIN 5.8 gm/dL (6.4-8.2)
[2020-12-04 08:11] VITALS: BP 145/70; PULSE 78; TEMP 98.4
[2020-12-04 12:00] VITALS: BP 102/64; PULSE 80; TEMP 98.4
--- NOTE | 2020-12-04 13:48 | NUR ---
Initial visit; Patient thanked It Support Consultant for looking in on her and offering God's blessings.
[2020-12-04 16:13] VITALS: BP 124/61; PULSE 72; TEMP 98.3
--- NOTE | 2020-12-04 18:30 | NUR ---
Patient has been doing really well today. Minimal complaints of pain. Pain has been controlled with [place]. Hernandez catheter discontinued this afternoon. She has voided once. No complaints of nausea. She had family at bedside most the afternoon. Dressings to right hip C/D/I. She couldn't find her hearing aid this morning but it was found in the bed this afternoon. No bowel movement today. She has been doing her incentive spirometer as ordered. No other changes at this time. Call light within reach.
[2020-12-04 19:58] VITALS: BP 121/52; PULSE 79; TEMP 99.8
--- NOTE | 2020-12-04 20:30 | NUR ---
Initial shift assessment , states right hip pain 08/18,, will give pain med at this time-- Up to BSC with assist/walker- tolerated well, voiding without problems,, o2 sats 87% on room air-- put on 2L/nc per respiratory therapy, C & DB, using IS
[2020-12-05 00:01] VITALS: BP 105/56; PULSE 75; TEMP 99.3
[2020-12-05 04:15] VITALS: BP 144/68; PULSE 75; TEMP 98.8
--- NOTE | 2020-12-05 05:45 | NUR ---
Quiet night-- slept well, o2 sats 94% with o2 at 2L/nc, was given [place] x1 during the night--has been sleeping, Up to BSC a couple times- tolerated well, highest temp was 99.8
[2020-12-05 06:56] LABS: BASO % 0.4 % (0.0-2.0); EOS # 0.1 (0.0-0.7); EOS % 1.8 % (0-4.0); GRAN # 4.9 (1.4-6.5); GRAN % 70.9 % (42.2-75.2); HEMOGLOBIN 11.4 g/dl (12.5-16.0); LYMPH % 15.2 % (20.0-51.0); MEAN CELL VOLUME 93 fl (80.0-100.0); MEAN CORPUSCULAR HEMOGLOBIN 31 pg (27.0-31.0); MEAN CORPUSCULAR HGB CONC 33 g/dl (33.0-37.0); MEAN PLATELET VOLUME 9.9 fl (7.4-10.4); MONO # 0.7 (0.1-0.6); MONO % 10.8 % (1.7-9.3); PLATELET COUNT 172 K/mm3 (130-400); REDCELL DISTRIBUTION WIDTH-CV 13.7 % (11.5-14.5)
[2020-12-05 06:58] LABS: HEMATOCRIT 34.4 % (37.0-47.0)
[2020-12-05 07:12] VITALS: BP 130/64; PULSE 72; TEMP 99.4
[2020-12-05 07:19] LABS: CALCIUM 8.5 mg/dL (8.4-10.2); CREATININE, serum 0.61 (0.52-1.25); MAGNESIUM 1.9 mg/dL (1.6-2.3); POTASSIUM 3.8 mmol/L (3.4-5.0)
[2020-12-05 07:20] LABS: INR 1.1 (0.8-3.0); PROTHROMBIN TIME 12.5 SECONDS (9.7-12.8)
--- NOTE | 2020-12-05 09:10 | NUR ---
Sw faxed over referrals to [facility] and [facility]. Pt can be d/c today or tomorrow. Sw to await.
[2020-12-05 11:09] VITALS: BP 104/54; PULSE 72; TEMP 98.2
[2020-12-05 15:26] VITALS: BP 102/52; PULSE 71; TEMP 97.6
--- NOTE | 2020-12-05 18:30 | NUR ---
Patient has been doing well today. She has been up several times to the bathroom with minimal help. She is using the walker. She is slow moving at time. Minimal complaints of pain. Switched from giving norco to tylenol today and patient tolerated well. Denies nausea. Encouraged her to work on coughing more to help work her lungs, she is having productive coughs this afternoon. She is a smoker, explained how important it is to exercise her lungs so she doesn't get pneumonia. SCD's and Jozef hose to BLE. She is hoping to discharge tomorrow but she has not decided on where she wants to go, [facility] vs [facility]. No other changes at this time. Explained the fluid restriction this morning and she has been sticking to it without issues. Call light within reach.
--- NOTE | 2020-12-05 19:09 | NUR ---
RECEIVED CHANGE OF SHIFT REPORT FROM DAY SHIFT NURSE.
[2020-12-05 19:26] VITALS: BP 136/54; PULSE 78; TEMP 98.3
[2020-12-06 00:05] VITALS: BP 133/70; PULSE 68; TEMP 98.4
[2020-12-06 03:56] VITALS: BP 170/78; PULSE 74; TEMP 97.8
--- NOTE | 2020-12-06 05:41 | NUR ---
PATIEN RESTING THROUGH OUT NIGHT AFTER RECEIVING MELATONIN. BREATHING NONLABORED AND EVEN THROUGH THE NIGHT. DRESSING INTACT TO RIGHT HIP.
[2020-12-06 05:57] LABS: BASO % 0.6 % (0.0-2.0); EOS # 0.2 (0.0-0.7); EOS % 2.2 % (0-4.0); GRAN % 69.7 % (42.2-75.2); HEMOGLOBIN 11.2 g/dl (12.5-16.0); LYMPH # 1.2 (1.2-3.4); LYMPH % 15.9 % (20.0-51.0); MEAN CELL VOLUME 92 fl (80.0-100.0); MEAN CORPUSCULAR HEMOGLOBIN 31 pg (27.0-31.0); MEAN CORPUSCULAR HGB CONC 33 g/dl (33.0-37.0); MEAN PLATELET VOLUME 9.5 fl (7.4-10.4); MONO # 0.8 (0.1-0.6); MONO % 10.8 % (1.7-9.3); PLATELET COUNT 179 K/mm3 (130-400); RED BLOOD COUNT 3.63 M/mm3 (4.10-5.30); REDCELL DISTRIBUTION WIDTH-CV 13.6 % (11.5-14.5)
[2020-12-06 06:01] LABS: HEMATOCRIT 33.5 % (37.0-47.0)
[2020-12-06 06:05] LABS: INR 1.3 (0.8-3.0)
[2020-12-06 06:13] LABS: CREATININE, serum 0.55 (0.52-1.25); POTASSIUM 3.8 mmol/L (3.4-5.0)
--- NOTE | 2020-12-06 07:00 | NUR ---
CHANGE OF SHIFT REPORT GIVEN TO DAY SHIFT NURSE, MOY SCHMIDT.
[2020-12-06 08:37] VITALS: BP 147/72; PULSE 66; TEMP 98.2
[2020-12-06] MEDS ORDERED: TAMBOCOR 1100 MG/TAB PO (08:59)
[2020-12-06] MEDS ORDERED: TYLENOL 325MG325 MG PO (09:00)
[2020-12-06] MEDS ORDERED: OSCAL 500 TAB500 MG PO (09:02)
[2020-12-06] MEDS ORDERED: VITAMIN D 400400 IU PO (09:03)
[2020-12-06] MEDS ORDERED: VITAMIN C500 MG PO (09:04)
[2020-12-06] MEDS ORDERED: DUO-KAPS1 CAP PO (09:04)
[2020-12-06] MEDS ORDERED: MELATIN 3 MG-11 TAB PO (09:05)
[2020-12-06] MEDS ORDERED: K-DUR20 MEQ PO (09:19)
[2020-12-06 11:26] VITALS: BP 125/50; PULSE 65; TEMP 97.5
--- NOTE | 2020-12-06 12:13 | NUR ---
Violette faxed over discharge orders and covid test results to David at [facility] @ 12:15 PM.
[2020-12-06 12:26] VITALS: BP 125/50; PULSE 65; TEMP 97.5
--- NOTE | 2020-12-06 13:00 | NUR ---
Patient is discharging to [facility]. Report called to RN taking over. Info packet sent with patient. INT discontinued. All belongings packed up and sent with patient. Her family was at bedside. Patient walked out via wheel chair.
== END 2020-12-06 13:15 | DRG 481 ==
LOC: COL.ER 13:41 → SURG 15:49
PROVIDERS: Family Medicine; Orthopaedic Surgery; Physician Assistant; ADMIT Internal Medicine
PROC: 0QS636Z Reposition Right Upper Femur with Intramedullary Internal Fixation Device, Percutaneous Approach (ICD-10-PCS; principal; 2020-12-03 12:45)
DX: S72.144A Nondisplaced intertrochanteric fracture of right femur, initial encounter for closed fracture (principal); E87.1 Hypo-osmolality and hyponatremia; G45.9 Transient cerebral ischemic attack, unspecified; I10 Essential (primary) hypertension; E78.5 Hyperlipidemia, unspecified; E03.9 Hypothyroidism, unspecified; I48.0 Paroxysmal atrial fibrillation; W18.30XA Fall on same level, unspecified, initial encounter; F32.9 Major depressive disorder, single episode, unspecified; Y93.01 Activity, walking, marching and hiking; Z79.02 Long term (current) use of antithrombotics/antiplatelets; Z98.51 Tubal ligation status
CPT/HCPCS: 99223-AI; 99232-AI; 99233-AI; 99239; A9284; C1713; C1769; J0690; J2270; J2550; J3475; J3480; J7030; J7120

== ENCOUNTER → 2020-12-07 | Outpatient (REF) ==
[~2020-12-07] MED LIST changes: +DUO-KAPS1 CAP PO; +MELATIN 3 MG-11 TAB PO; +OSCAL 500 TAB500 MG PO; +TYLENOL 325MG325 MG PO; +VITAMIN C500 MG PO; +VITAMIN D 400400 IU PO
[2020-12-07 16:05] LABS: CALCIUM 8.9 mg/dL (8.4-10.2); CREATININE, serum 0.67 (0.52-1.25); POTASSIUM 4.5 mmol/L (3.4-5.0)
[2020-12-07 16:50] LABS: MAGNESIUM 1.9 mg/dL (1.6-2.3)
== END ==
LOC: ZLAB.STJ 15:51
PROVIDERS: Family Medicine
DX: R79.89 Other specified abnormal findings of blood chemistry (principal); E66.2 Morbid (severe) obesity with alveolar hypoventilation

== ENCOUNTER 2021-10-10 21:55 | Inpatient (IN) | payer MEDICARE, BC ==
[~2021-10-10] VITALS: Ht 162.6 cm; Wt 62.1 kg
[2021-10-10 22:28] LABS: BASO # 0.1 K/mm3 (0.0-0.2); BASO % 0.5 % (0.0-2.0); EOS % 0.3 % (0.0-4.0); GRAN # 8.4 K/mm3 (1.4-6.5); HEMATOCRIT 37.4 % (37.0-47.0); HEMOGLOBIN 12.8 g/dl (12.5-16.0); LYMPH % 16.7 % (20.0-51.0); MEAN CELL VOLUME 91 fl (80.0-100.0); MEAN CORPUSCULAR HEMOGLOBIN 31 pg (27-31); MEAN CORPUSCULAR HGB CONC 34 g/dl (33.0-37.0); MEAN PLATELET VOLUME 9.4 fl (7.4-10.4); MONO # 1.2 K/mm3 (0.1-0.6); MONO % 10.1 % (1.7-9.3); PLATELET COUNT 236 K/mm3 (130-400); RED BLOOD COUNT 4.13 M/mm3 (4.10-5.30); REDCELL DISTRIBUTION WIDTH-CV 12.8 % (11.5-14.5)
[2021-10-10 22:40] LABS: ALANINE AMINOTRANSFERASE 12 U/L (0-55); ALBUMIN 3.2 gm/dL (3.4-4.8); ALKALINE PHOSPHATASE 54 U/L (40-150); ANION GAP 14 mmol/L (7-16); AST,SGOT 17 U/L (5-34); BILIRUBIN,TOTAL 0.7 mg/dL (0.2-1.2); BLOOD UREA NITROGEN 10 mg/dL (10-20); C-REACTIVE PROTEIN 6.41 mg/dL (0.00-0.50); CALCIUM 8.6 mg/dL (8.4-10.2); CARBON DIOXIDE 23 mmol/L (23-31); CHLORIDE 95 mmol/L (98-107); CREATININE, serum 0.77 mg/dL (0.57-1.11); GLUCOSE 119 mg/dL (70-99); LIPASE 28 U/L (8-78); POTASSIUM 3.6 mmol/L (3.5-4.5); SODIUM 132 mmol/L (136-145); TOTAL PROTEIN 7.4 gm/dL (6.2-8.1)
[2021-10-10 22:52] LABS: TROPONIN-I < 0.010 ng/mL (0.00-0.033)
[2021-10-11 02:09] LABS: COLLECTION METHOD CLEAN CATCH
[2021-10-11 02:16] LABS: PH 6 (5-8); SQUAMOUS EPITHELIAL None Seen /hpf (0-10); URINE APPEARANCE Clear (CLEAR/HAZY); URINE BACTERIA Rare /hpf (NONE SEEN); URINE BILIRUBIN Negative (NEGATIVE); URINE BLOOD 1+ (NEGATIVE); URINE COLOR Yellow (YELLOW); URINE GLUCOSE Negative (NEGATIVE); URINE KETONE Negative (NEGATIVE); URINE LEUKOCYTE ESTERASE Negative (NEGATIVE); URINE NITRATE Negative (NEGATIVE); URINE PROTEIN(semi-quant) Negative (NEGATIVE); URINE RBC 0-2 /hpf (0-2); URINE UROBILINOGEN Negative (NEGATIVE)
[2021-10-11 02:54] LABS: INR 1.9 (0.8-3.0); PROTHROMBIN TIME 21.4 SECONDS (9.7-12.8)
[2021-10-11 04:01] VITALS: BP 124/71; PULSE 79; TEMP 99.6
--- NOTE | 2021-10-11 04:41 | NUR ---
Pt to the floor at approximately 0325 via wheelchair. Assessment completed. Pt A&Ox4, no complaints at this time. Call light within reach.
[2021-10-11] MEDS ORDERED: K-DUR20 MEQ PO (05:26)
[2021-10-11] MEDS ORDERED: ARICEPT 5MG PO (05:27)
[2021-10-11] MEDS ORDERED: BYSTOLIC10 MG PO (05:30)
[2021-10-11] MEDS ORDERED: LEXAPRO20 MG PO (05:30)
[2021-10-11] MEDS ORDERED: SYNTHROID0.137 MG PO (05:30)
[2021-10-11 06:50] LABS: BASO # 0.1 K/mm3 (0.0-0.2); BASO % 0.5 % (0.0-2.0); EOS % 0.2 % (0.0-4.0); GRAN # 8.3 K/mm3 (1.4-6.5); GRAN % 76.1 % (42.2-75.2); HEMOGLOBIN 11.9 g/dl (12.5-16.0); LYMPH # 1.1 K/mm3 (1.2-3.4); LYMPH % 10.5 % (20.0-51.0); MEAN CELL VOLUME 91 fl (80.0-100.0); MEAN CORPUSCULAR HEMOGLOBIN 31 pg (27-31); MEAN CORPUSCULAR HGB CONC 34 g/dl (33.0-37.0); MEAN PLATELET VOLUME 10.6 fl (7.4-10.4); MONO # 1.3 K/mm3 (0.1-0.6); MONO % 12.1 % (1.7-9.3); PLATELET COUNT 218 K/mm3 (130-400); RED BLOOD COUNT 3.85 M/mm3 (4.10-5.30); REDCELL DISTRIBUTION WIDTH-CV 12.7 % (11.5-14.5)
--- NOTE | 2021-10-11 06:56 | NUR ---
Report received, assumed care for day shift.
[2021-10-11 06:58] LABS: HEMATOCRIT 34.9 % (37.0-47.0)
[2021-10-11 07:12] VITALS: BP 103/53; PULSE 71; TEMP 98.9
[2021-10-11 08:02] LABS: CALCIUM 8.5 mg/dL (8.4-10.2); CREATININE, serum 0.64 mg/dL (0.57-1.11); POTASSIUM 3.5 mmol/L (3.5-4.5)
--- NOTE | 2021-10-11 08:26 | NUR ---
JACQUIE Oliva notified of hypotension and hypertensive medications due this am. New orders received to hold.
--- NOTE | 2021-10-11 10:44 | NUR ---
SW completed rounds with physician. Informed treating patient for pneumonia awaiting results of xray. Intake completed after rounds. Patient states that she lives alone. Next of kin is her sistet Renetta Mccormick [phone] or son Mir Jj. Patient states that she does not utilize DME and is independent with ADL's. PCP is Dr. Ward and pharmacy is [facility]. Patient states that her son has been appointed as her DPOA/HC. Patient states she plans to return to her home upon DC and has no questions or concerns at this time. TOM will continue to follow. DC plan: home
--- NOTE | 2021-10-11 11:08 | NUR ---
Imaging notified of new order of echo.
[2021-10-11 12:00] VITALS: BP 132/62; PULSE 66; TEMP 99.8
[2021-10-11 15:28] VITALS: BP 149/67; PULSE 89; TEMP 100.5
--- NOTE | 2021-10-11 15:44 | NUR ---
Report from PCT of elevated temp at 100.5. Tylenol given per dr musa.
[2021-10-11 19:11] VITALS: BP 136/59; PULSE 75; TEMP 97.9
[2021-10-11 23:41] VITALS: BP 132/65; PULSE 87; TEMP 102.5
[2021-10-12 03:33] VITALS: BP 124/45; PULSE 62; TEMP 98.7
--- NOTE | 2021-10-12 04:14 | NUR ---
PCT reported elevated temp, PRN Tylenol was given which helped decreased temp. Pt has no complaints of pain throughout the night. Tolerating general diet well. All other needs met at this time, call light within reach.
[2021-10-12 06:24] LABS: BASO # 0.1 K/mm3 (0.0-0.2); BASO % 0.5 % (0.0-2.0); EOS # 0.1 K/mm3 (0.0-0.7); EOS % 0.5 % (0.0-4.0); GRAN # 6.9 K/mm3 (1.4-6.5); GRAN % 73.3 % (42.2-75.2); HEMOGLOBIN 10.8 g/dl (12.5-16.0); LYMPH # 1.2 K/mm3 (1.2-3.4); MEAN CELL VOLUME 93 fl (80.0-100.0); MEAN CORPUSCULAR HEMOGLOBIN 31 pg (27-31); MEAN CORPUSCULAR HGB CONC 34 g/dl (33.0-37.0); MEAN PLATELET VOLUME 10.5 fl (7.4-10.4); MONO # 1.2 K/mm3 (0.1-0.6); MONO % 12.3 % (1.7-9.3); PLATELET COUNT 209 K/mm3 (130-400); RED BLOOD COUNT 3.46 M/mm3 (4.10-5.30); REDCELL DISTRIBUTION WIDTH-CV 12.8 % (11.5-14.5)
[2021-10-12 06:28] LABS: CREATININE, serum 0.59 mg/dL (0.57-1.11); POTASSIUM 3.7 mmol/L (3.5-4.5)
[2021-10-12 07:49] VITALS: BP 129/45; PULSE 63; TEMP 98.3
[2021-10-12 08:16] LABS: INR 1.7 (0.8-3.0); PROTHROMBIN TIME 20.1 SECONDS (9.7-12.8)
--- NOTE | 2021-10-12 11:20 | NUR ---
PT HAS BEEN TO CT ET RETURNED TO ROOM.
[2021-10-12 12:12] VITALS: BP 147/62; PULSE 66; TEMP 98.4
--- NOTE | 2021-10-12 13:17 | NUR ---
PT SEEN WALKING INDEPENDENTLY IN HALLWAY @ THIS TIME, TOLERATES WELL. PT HAS DENIED PAIN TODAY, INDEPENDENTLY TOOK SHOWER, HAS BEEN MOSTLY RESTING IN BED. PT HAS AN INTERMITTENT COUGH WHICH PRODUCES RED TINGED THIN SPUTUM.
--- NOTE | 2021-10-12 15:55 | NUR ---
PT REPORTS HAVING DIARRHEA THAT IS VERY FOUL SMELLING BUT HAD FLUSHED STOOL. PT INSTRUCTED TO NOT FLUSH TOILET IF SHE HAS ANOTHER STOOL, VERBALIZES UNDERSTANDING. PT STATES THAT SHE HAS HAD DIARRHEA THAT IS SIMILAR IN THE PAST WHEN SHE EATS TOO MUCH, HAD A SALAD FOR LUNCH.
[2021-10-12 16:05] VITALS: BP 155/65; PULSE 74; TEMP 99
[2021-10-12 21:45] VITALS: BP 145/66; PULSE 67; TEMP 99.2
--- NOTE | 2021-10-12 23:57 | NUR ---
Pts GI panel came back negative. Pt has had no complaints of pain or discomfort thus far this shift. Still awaiting sputum culture results.
[2021-10-13] VITALS (7 sets, daily range): BP systolic 136–165; BP diastolic 63–84; PULSE 69–90; TEMP 98.5–99.7
--- NOTE | 2021-10-13 00:50 | NUR ---
Haylee hospitalist, was notified of pts gradual increase in BP. Most recent BP was noted at 158/67. Hospitalist relayed to this nurse that she was not concerned unless systolic was above 170. Otherwise pts needs are met at this time.
--- NOTE | 2021-10-13 01:14 | NUR ---
Pt has had an uneventful evening and has been pleasant thus far. Pt A&Ox4, assessment and medication pass completed without difficulty. Pts fever was maintained via PRN Tylenol with positive results. Pt does had complaints of pain in her sides due to coughing. All other needs met at this time, call light within reach.
[2021-10-13 05:59] LABS: BASO % 0.4 % (0.0-2.0); EOS # 0.1 K/mm3 (0.0-0.7); EOS % 0.9 % (0.0-4.0); GRAN # 7.1 K/mm3 (1.4-6.5); LYMPH # 1.1 K/mm3 (1.2-3.4); MEAN CELL VOLUME 92 fl (80.0-100.0); MEAN CORPUSCULAR HEMOGLOBIN 31 pg (27-31); MEAN CORPUSCULAR HGB CONC 34 g/dl (33.0-37.0); MEAN PLATELET VOLUME 10.1 fl (7.4-10.4); MONO % 10.2 % (1.7-9.3); PLATELET COUNT 234 K/mm3 (130-400); RED BLOOD COUNT 3.56 M/mm3 (4.10-5.30); REDCELL DISTRIBUTION WIDTH-CV 12.6 % (11.5-14.5)
[2021-10-13 06:12] LABS: HEMATOCRIT 32.7 % (37.0-47.0)
[2021-10-13 06:24] LABS: CALCIUM 8.6 mg/dL (8.4-10.2); CREATININE, serum 0.57 mg/dL (0.57-1.11); POTASSIUM 3.2 mmol/L (3.5-4.5)
--- NOTE | 2021-10-13 10:24 | NUR ---
PT RESTING IN BED, HAS EATEN 50% OF BREAKFAST. PT REPORTS HAVING HAD 4 DIARRHEA STOOLS THIS MORNING, IMMODIUM HAS BEEN GIVEN. MAGNESIUM IV INFUSING INTO PERIPHERAL IV. PT DENIES PAIN ET STATES THAT SHE FEELS IMPROVED TODAY ET THAT HER BREATHING FEELS EASIER. LUNG SOUNDS CTA. PT DENIES NEEDS, HAS BEEN UP INDEPENDENTLY IN ROOM. CALL LIGHT WITHIN REACH.
--- NOTE | 2021-10-13 18:33 | NUR ---
PT RESTING IN BED, HAS ATTEMPTED TO EAT ARBYS SANDWICH THAT FAMILY HAD BROUGHT IN FOR HER. PT TOOK A FEW BITES ET STATES THAT IT WAS NOT SETTLING WELL. PT'S PERIPHERAL IV IS RED ET LEAKING, CORD IS PALPABLE. VIBRAMYCIN IV HAD BEEN INFUSING WHEN PHLEBITIS IS NOTED. X2 ATTEMPTS MADE BY THIS NURSE TO INSERT NEW IV, WAS UNSUCCESSFUL. WILL GIVE REPORT TO BODY SHOP TECHNICIAN ET ALLOW ANOTHER NURSE TO TRY.
[2021-10-14 03:18] VITALS: BP 164/70; PULSE 66; TEMP 98.5
[2021-10-14 06:45] LABS: BASO % 0.4 % (0.0-2.0); EOS # 0.1 K/mm3 (0.0-0.7); EOS % 1.1 % (0.0-4.0); GRAN # 5.9 K/mm3 (1.4-6.5); GRAN % 69.9 % (42.2-75.2); HEMOGLOBIN 11.4 g/dl (12.5-16.0); LYMPH # 1.3 K/mm3 (1.2-3.4); LYMPH % 15.7 % (20.0-51.0); MEAN CELL VOLUME 89 fl (80.0-100.0); MEAN CORPUSCULAR HEMOGLOBIN 30 pg (27-31); MEAN CORPUSCULAR HGB CONC 34 g/dl (33.0-37.0); MEAN PLATELET VOLUME 10.3 fl (7.4-10.4); MONO % 12.2 % (1.7-9.3); PLATELET COUNT 279 K/mm3 (130-400); RED BLOOD COUNT 3.77 M/mm3 (4.10-5.30); REDCELL DISTRIBUTION WIDTH-CV 12.7 % (11.5-14.5)
[2021-10-14 06:47] LABS: HEMATOCRIT 33.5 % (37.0-47.0)
[2021-10-14 07:03] LABS: CALCIUM 8.9 mg/dL (8.4-10.2); CREATININE, serum 0.62 mg/dL (0.57-1.11); MAGNESIUM 1.7 mg/dL (1.6-2.6); POTASSIUM 3.4 mmol/L (3.5-4.5)
[2021-10-14 07:39] VITALS: BP 171/73; PULSE 75; TEMP 97.6
[2021-10-14] MEDS ORDERED: PROAIR HFA0.09 MG/AC IH (08:42)
[2021-10-14] MEDS ORDERED: PROBIOTIC ACID1 EAC3 PO (08:44)
[2021-10-14] MEDS ORDERED: OMNICEF 300MG300 MG PO (08:49)
--- NOTE | 2021-10-14 10:09 | NUR ---
The clinical team is ready to discharge the patient today. PT is recommending home health vs outpatient PT. TOM met with the patient to discuss their recommendation. The patient was up walking and independent in her room. The patient states that she does not feel like she needs any home health services at this time. She also declined outpatient therapy. The patient states that her and her have had home health from [facility] in the past and if she feels like she needs home health at a later time, she will contact them. She declined having this SW send [facility] a referral and to get it set up now. TOM presented and read the IM form outloud to the patient. The patient verbalized understanding and of discharge today. She signed the form and TOM provided her with a copy. OT notified TOM that the patient may be interested in counseling for the loss of her and son. TOM provided the patient with a list of local mental health resources and the contact information to the [facility] in [place]. No additional needs at this time.
== END 2021-10-14 10:30 | disposition home or self-care (01) | DRG 194 ==
LOC: COL.ER 21:55 → SURG 10-11 01:47
PROVIDERS: Internal Medicine; Nurse Practitioner; Nurse Practitioner Family; Physician Assistant; ADMIT Student in an Organized Health Care Education/Training Program
DX: J18.9 Pneumonia, unspecified organism (principal); E87.1 Hypo-osmolality and hyponatremia; R04.2 Hemoptysis; I10 Essential (primary) hypertension; E78.5 Hyperlipidemia, unspecified; E03.9 Hypothyroidism, unspecified; I48.0 Paroxysmal atrial fibrillation; I65.29 Occlusion and stenosis of unspecified carotid artery; I70.1 Atherosclerosis of renal artery; Z66 Do not resuscitate; E87.8 Other disorders of electrolyte and fluid balance, not elsewhere classified; F17.210 Nicotine dependence, cigarettes, uncomplicated; E86.0 Dehydration; E87.6 Hypokalemia; R19.7 Diarrhea, unspecified; R10.9 Unspecified abdominal pain; R63.4 Abnormal weight loss; Z79.01 Long term (current) use of anticoagulants; Z68.24 Body mass index [BMI] 24.0-24.9, adult
CPT/HCPCS: 99223-AI; 99232-AI; 99239; J0696; J1170; J2405; J3475; J7030; Q9967

== ENCOUNTER 2021-11-06 08:34 | Day surgery (SDC) | payer MEDICARE, BC ==
[~2021-11-06] VITALS: Ht 162.6 cm; Wt 61.0 kg
[~2021-11-06 08:34] MED LIST changes: +ARICEPT 5MG PO; +OMNICEF 300MG300 MG PO; +PROAIR HFA0.09 MG/AC IH; +PROBIOTIC ACID1 EAC3 PO; +SYNTHROID0.137 MG PO
[2021-11-06] MEDS ORDERED: CARAFATE 1GM1 G PO (09:29)
[2021-11-06 09:34] VITALS: BP 147/78; PULSE 62; TEMP 97.7
[2021-11-06] MEDS ORDERED: TAMBOCOR 1100 MG/TAB PO (10:25)
[2021-11-06] MEDS ORDERED: OSCAL 500 TAB500 MG PO (10:26)
[2021-11-06] MEDS ORDERED: VTAMINC250TA PO (10:26)
[2021-11-06] MEDS ORDERED: DUO-KAPS1 CAP PO (10:27)
[2021-11-06 10:45] VITALS: BP 157/83; PULSE 56; TEMP 97.7
[2021-11-06 11:00] VITALS: BP 152/84; PULSE 65
[2021-11-06 11:15] VITALS: BP 153/87; PULSE 63
== END 2021-11-06 12:10 | disposition home or self-care (01) ==
LOC: SDCO 08:34
DX: K29.50 Unspecified chronic gastritis without bleeding (principal); K52.832 Lymphocytic colitis; K57.30 Diverticulosis of large intestine without perforation or abscess without bleeding; K64.0 First degree hemorrhoids; K44.9 Diaphragmatic hernia without obstruction or gangrene; K29.70 Gastritis, unspecified, without bleeding; K22.4 Dyskinesia of esophagus
CPT/HCPCS: J2704; J7120

== ENCOUNTER 2022-01-23 14:08 | Emergency (ER) | payer MEDICARE, BC ==
[~2022-01-23] VITALS: Ht 165.1 cm; Wt 68.2 kg
[~2022-01-23 14:08] MED LIST changes: +CARAFATE 1GM1 G PO; +VTAMINC250TA PO
[2022-01-23 18:01] LABS: BASO # 0.1 K/mm3 (0.0-0.2); BASO % 1.1 % (0.0-2.0); EOS # 0.2 K/mm3 (0.0-0.7); EOS % 2.6 % (0.0-4.0); GRAN # 2.9 K/mm3 (1.4-6.5); GRAN % 46.8 % (42.2-75.2); HEMOGLOBIN 14.1 g/dl (12.5-16.0); LYMPH # 2.4 K/mm3 (1.2-3.4); MEAN CELL VOLUME 92 fl (80.0-100.0); MEAN CORPUSCULAR HEMOGLOBIN 32 pg (27-31); MEAN CORPUSCULAR HGB CONC 34 g/dl (33.0-37.0); MEAN PLATELET VOLUME 9.8 fl (7.4-10.4); MONO # 0.6 K/mm3 (0.1-0.6); MONO % 10.3 % (1.7-9.3); PLATELET COUNT 264 K/mm3 (130-400); RED BLOOD COUNT 4.48 M/mm3 (4.10-5.30); REDCELL DISTRIBUTION WIDTH-CV 13.1 % (11.5-14.5)
[2022-01-23 18:12] LABS: BILIRUBIN,TOTAL 0.3 mg/dL (0.2-1.2); CALCIUM 9.7 mg/dL (8.4-10.2); CREATININE, serum 0.81 mg/dL (0.57-1.11); POTASSIUM 3.7 mmol/L (3.5-4.5); TOTAL PROTEIN 7.8 gm/dL (6.2-8.1)
[2022-01-23 18:18] LABS: TROPONIN-I 0.011 ng/mL (0.00-0.033)
[2022-01-23 18:44] LABS: COLLECTION METHOD CLEAN CATCH
[2022-01-23 18:54] LABS: URINE APPEARANCE Clear (CLEAR/HAZY); URINE BLOOD Negative (NEGATIVE); URINE COLOR Yellow (YELLOW); URINE GLUCOSE Negative (NEGATIVE); URINE KETONE Negative (NEGATIVE); URINE NITRATE Negative (NEGATIVE); URINE PROTEIN(semi-quant) Negative (NEGATIVE); URINE UROBILINOGEN 0.2 E.U/dL (0.2-1.0)
[2022-01-23 19:05] LABS: SQUAMOUS EPITHELIAL None Seen /hpf (0-10); URINE BACTERIA None Seen /hpf (NONE SEEN); URINE RBC 0-2 /hpf (0-2)
[2022-01-23 20:05] VITALS: BP 179/92; PULSE 59; TEMP 98.2
== END 2022-01-23 20:05 | disposition home or self-care (01) ==
LOC: COL.ER 14:08
PROVIDERS: Nurse Practitioner Primary Care
DX: R51.9 Headache, unspecified (principal); Z87.891 Personal history of nicotine dependence; Z20.822 Contact with and (suspected) exposure to COVID-19

== ENCOUNTER → 2022-01-28 | Outpatient (CLI) | payer MEDICARE, BC | LOC: COL.RAD 11:27 | DX: G31.1 Senile degeneration of brain, not elsewhere classified (principal); I67.82 Cerebral ischemia; I65.23 Occlusion and stenosis of bilateral carotid arteries | CPT/HCPCS: Q9967 ==

== ENCOUNTER 2022-08-02 21:01 | Emergency (ER) | payer MEDICARE, BC ==
[~2022-08-02] VITALS: Ht 167.6 cm; Wt 63.6 kg
[2022-08-02 21:14] VITALS: TEMP 98.2
[2022-08-02 22:13] LABS: BASO # 0.1 K/mm3 (0.0-0.2); BASO % 1.3 % (0.0-2.0); EOS # 0.1 K/mm3 (0.0-0.7); GRAN # 2.7 K/mm3 (1.4-6.5); GRAN % 49.6 % (42.2-75.2); HEMOGLOBIN 12.5 g/dl (12.5-16.0); LYMPH % 36.2 % (20.0-51.0); MEAN CELL VOLUME 88 fl (80.0-100.0); MEAN CORPUSCULAR HEMOGLOBIN 30 pg (27-31); MEAN CORPUSCULAR HGB CONC 35 g/dl (33.0-37.0); MEAN PLATELET VOLUME 9.4 fl (7.4-10.4); MONO # 0.6 K/mm3 (0.1-0.6); MONO % 10.5 % (1.7-9.3); PLATELET COUNT 376 K/mm3 (130-400); RED BLOOD COUNT 4.13 M/mm3 (4.10-5.30); REDCELL DISTRIBUTION WIDTH-CV 14.7 % (11.5-14.5)
[2022-08-02 22:17] LABS: INR 1.3 (0.8-3.0); PROTHROMBIN TIME 14.8 SECONDS (9.7-12.8)
[2022-08-02 22:20] LABS: ALBUMIN 3.5 gm/dL (3.4-4.8); BILIRUBIN,TOTAL 0.3 mg/dL (0.2-1.2); CALCIUM 10.1 mg/dL (8.4-10.2); CREATININE, serum 0.9 mg/dL (0.57-1.11); POTASSIUM 3.8 mmol/L (3.5-4.5); TOTAL PROTEIN 7.4 gm/dL (6.2-8.1)
[2022-08-02 22:24] LABS: HEMATOCRIT 36.2 % (37.0-47.0)
[2022-08-02 23:16] LABS: COLLECTION METHOD CLEAN CATCH
[2022-08-02 23:20] LABS: URINE APPEARANCE Clear (CLEAR/HAZY); URINE BLOOD Negative (NEGATIVE); URINE COLOR Yellow (YELLOW); URINE GLUCOSE Negative (NEGATIVE); URINE KETONE Negative (NEGATIVE); URINE NITRATE Negative (NEGATIVE); URINE PROTEIN(semi-quant) Negative (NEGATIVE); URINE UROBILINOGEN 0.2 E.U/dL (0.2-1.0)
[2022-08-02 23:22] LABS: MUCOUS Present (NOT PRESENT); SQUAMOUS EPITHELIAL None Seen /hpf (0-10); URINE BACTERIA None Seen /hpf (NONE SEEN); URINE RBC 0-2 /hpf (0-2)
[2022-08-03 00:06] VITALS: BP 159/86; PULSE 76
== END 2022-08-03 00:52 | disposition home or self-care (01) ==
LOC: COL.ER 21:01
PROVIDERS: Emergency Medicine
DX: I10 Essential (primary) hypertension (principal); Z79.899 Other long term (current) drug therapy

== ENCOUNTER 2023-07-29 17:02 | Observation (INO) | payer MEDICARE, BC ==
[~2023-07-29] VITALS: Ht 165.1 cm; Wt 59.1 kg
[2023-07-29 17:44] LABS: BASO # 0.1 K/mm3 (0.0-0.2); BASO % 0.9 % (0.0-2.0); EOS # 0.1 K/mm3 (0.0-0.7); GRAN # 3.2 K/mm3 (1.4-6.5); GRAN % 55.7 % (42.2-75.2); HEMATOCRIT 40.6 % (37.0-47.0); HEMOGLOBIN 13.4 g/dl (12.5-16.0); LYMPH # 1.9 K/mm3 (1.2-3.4); LYMPH % 32.8 % (20.0-51.0); MEAN CELL VOLUME 94 fl (80.0-100.0); MEAN CORPUSCULAR HEMOGLOBIN 31 pg (27-31); MEAN CORPUSCULAR HGB CONC 33 g/dl (33.0-37.0); MEAN PLATELET VOLUME 9.6 fl (7.4-10.4); MONO # 0.5 K/mm3 (0.1-0.6); MONO % 9.3 % (1.7-9.3); PLATELET COUNT 249 K/mm3 (130-400); RED BLOOD COUNT 4.31 M/mm3 (4.10-5.30); REDCELL DISTRIBUTION WIDTH-CV 13.1 % (11.5-14.5)
[2023-07-29] MEDS ORDERED: cloNIDine 0.1 MG TAB PO ONE (17:45)
[2023-07-29 17:52] LABS: INR 1.1 (0.8-3.0); PROTHROMBIN TIME 11.8 SECONDS (9.7-12.8)
[2023-07-29 17:55] LABS: PARTIAL THROMBOPLASTIN TIME 32.4 SECONDS (26.0-37.0)
[2023-07-29 18:01] LABS: CALCIUM 10.5 mg/dL (8.4-10.2); CREATININE, serum 1.04 mg/dL (0.57-1.11); POTASSIUM 3.5 mmol/L (3.5-4.5)
[2023-07-29 18:09] LABS: TROPONIN-I 0.014 ng/mL (0.00-0.033)
[2023-07-29] MEDS ORDERED: Iohexol 350 - 100 ML VIAL IV ONE (18:37)
[2023-07-29] MEDS ORDERED: NS 50 ML IV SCH (18:37)
[2023-07-29] MEDS ORDERED: DULCOLAX STOOL100 MG PO (19:00)
[2023-07-29] MEDS ORDERED: VITAMIN C500 MG PO (19:02)
[2023-07-29] MEDS ORDERED: DOXYCYCLINE HY100 MG PO (19:07)
[2023-07-29] MEDS ORDERED: ELIQUIS 2.5 PO (19:07)
[2023-07-29] MEDS ORDERED: FERRO-TIME325 MG PO (19:08)
[2023-07-29] MEDS ORDERED: NORCO 325 MG-51 TAB PO (19:09)
[2023-07-29] MEDS ORDERED: amLODIPine 5 MG TAB PO SCH (19:39)
[2023-07-29] MEDS ORDERED: Acetaminophen 325 MG TAB PO PRN ×2 (19:45→21:30)
[2023-07-29] MEDS ORDERED: NS 1,000 ML IV SCH (20:00)
[2023-07-29] MEDS ORDERED: hydrALAZINE 20 MG/ML 1 ML VIAL IV PRN (20:00)
[2023-07-29 20:36] LABS: CHOLESTEROL RISK RATIO 2.4
[2023-07-29 20:57] LABS: TSH w REFLEX 1.888 uIU/mL (0.350-4.940)
[2023-07-29] MEDS ORDERED: Apixaban 2.5 MG TAB PO SCH (21:00)
[2023-07-29] MEDS ORDERED: Doxycycline Monohydrate 100 MG CAP PO SCH (21:00)
[2023-07-29] MEDS ORDERED: Donepezil 5 MG TAB PO SCH (21:00)
[2023-07-29] MEDS ORDERED: Potassium Bicarbonate/Citrate 20 MEQ Effervescent TAB PO SCH (21:45)
[2023-07-29] MEDS ORDERED: *Potassium Replacement Protocol MC SCH (21:45)
[2023-07-29 21:54] VITALS: BP 160/78; PULSE 73; TEMP 97.7
--- NOTE | 2023-07-29 22:00 | NUR ---
Patient arrived on the unit at 2145 with personal belongings. Vitals obtained. Assessment and med rec complete. IV in left AC infusing with no complications. Denies any pain at this time. Fresh water provided, denies any other needs. Oriented patient to room, bed, call light, bathroom, and phone. Call light and personal items in reach. Bed in low position and bed alarm on.
[2023-07-29] MEDS ORDERED: PRAVACHOL 40MG40 MG PO (22:38)
[2023-07-29] MEDS ORDERED: LOTRISONE CREAM15 GM TP (22:40)
[2023-07-30] VITALS (9 sets, daily range): BP systolic 131–176; BP diastolic 74–88; PULSE 62–72; TEMP 97.7–98.2
[2023-07-30 01:22] LABS: COLLECTION METHOD CLEAN CATCH
[2023-07-30 01:42] LABS: PH 6.5 (5.0-8.5); URINE APPEARANCE CLEAR (CLEAR/HAZY); URINE BLOOD NEGATIVE (NEGATIVE); URINE COLOR YELLOW (YELLOW); URINE GLUCOSE TRACE (NEGATIVE); URINE KETONE NEGATIVE (NEGATIVE); URINE NITRATE NEGATIVE (NEGATIVE); URINE PROTEIN(semi-quant) NEGATIVE (NEGATIVE); URINE UROBILINOGEN 0.2 E.U/dL (0.2-1.0)
--- NOTE | 2023-07-30 06:00 | NUR ---
Patient resting in bed. Denies any pain or needs at this time. Patient has been scoring 0 on stroke scale. No changes over night. Call light and personal items in reach. Bed in low position and bed alarm on.
[2023-07-30] MEDS ORDERED: Levothyroxine 0.112 MG,Levothyroxine 0.025 MG PO SCH (07:00)
--- NOTE | 2023-07-30 08:07 | NUR ---
patient is laying in bed now. upon entering the room she asked if she could have assistance to the bathroom, her output was 100Ml of clear yellow urine. she was then assisted back into bed where her vitals were taken and assessment was completed. she is resting in bed with call light within reach and bed in lowest position. she was asked if she would like any breakfast ordered at this time and she decline, she was then reminded that if she changed her mind to just let someone know and we could order it for her. patient denies any needs at this time.
[2023-07-30] MEDS ORDERED: Ferrous Sulfate 325 MG TAB PO SCH (09:00)
[2023-07-30] MEDS ORDERED: Escitalopram 10 MG TAB PO SCH (09:00)
[2023-07-30] MEDS ORDERED: Multivitamin TAB PO SCH (09:00)
--- NOTE | 2023-07-30 09:00 | NUR ---
PT LAYING IN BED UPON ENTERING. ASSESSMENT DONE, MEDS GIVEN BY [facility] ADN STUDENT. PT REPORTS HEADACHE, GIVEN PRN TYLENOL. NS RUNNING AT 75 MLR/HR PER ORDER IN LEFT AC. TEGADERM SOILED AND CHANGED AT THIS TIME. PT DENIES NEEDS, BP RECHECKED AND 144/78. BED IN LOWEST POSITION, CALL LIGHT IN REACH, BED ALARM ON
--- NOTE | 2023-07-30 10:00 | NUR ---
FLUIDS STOPPED PER ORDER
[2023-07-30] MEDS ORDERED: Potassium Bicarbonate/Citrate 20 MEQ Effervescent TAB PO ONE (13:00)
--- NOTE | 2023-07-30 13:47 | NUR ---
chore worker met with patient to discuss discharge planning. Patient lives alone in [place]. Best point of contact is Jeanna (daughter) P# [phone] or Renetta (Sister) P# [phone]. PCP is Dr. Ward, pharmacy is [facility]. No issues affording medications. Insurance is Medicare A and B and BCBS. DPOA-HC is her son, Donald Jj, P# [phone]. DME is a walker. Patient reports she is normally independent with ADLS. Patient is unable to drive but has [facility] that transports her to and from appointments along with helping her in her home with housework and anything she needs assistance with. Patient does not have any PT/OT home health services at this time. Patient would like to return home at time of discharge. Discharge plan: Home
--- NOTE | 2023-07-30 13:58 | NUR ---
THIS NURSE CALLED MRI TWO TIMES WITH NO ANSWER. XRAY CALLED AND CHECKED MRI STATING THAT LIGHTS WERE OFF AND NO STAFF ITEMS IN USUAL SPOT. JACQUIE MCNAIR NOTIFIED
[2023-07-30] MEDS ORDERED: Gadoterate 15 ML VIAL IV ONE (15:19)
[2023-07-30] MEDS ORDERED: ASPIRIN E.C. 8181 MG PO (16:43)
[2023-07-30] MEDS ORDERED: LIPITOR 80MG80 MG PO (16:43)
[2023-07-30] MEDS ORDERED: NORVASC 10MG10 MG PO (16:52)
--- NOTE | 2023-07-30 17:16 | NUR ---
IV AND TELE REMOVED. PT DRESSING IN PERSONAL CLOTHES AT THIS TIME
--- NOTE | 2023-07-30 17:47 | NUR ---
DISCHARGE INSTRUCTIONS GIVEN TO PT. PT DENIES NEEDS AT WAITING FOR HER RIDE AT THIS TIME
--- NOTE | 2023-07-30 18:00 | NUR ---
PT ESCORTED TO PERSONAL VEHICLE VIA WHEELCHAIR BY THIS NURSE
== END 2023-07-30 18:00 | disposition home or self-care (01) ==
LOC: COL.ER 17:02 → MEDICAL 20:00
PROVIDERS: Internal Medicine; Nurse Practitioner Family; ADMIT Hospitalist
DX: I65.23 Occlusion and stenosis of bilateral carotid arteries (principal); H34.9 Unspecified retinal vascular occlusion; G31.9 Degenerative disease of nervous system, unspecified; H53.47 Heteronymous bilateral field defects; I10 Essential (primary) hypertension; E78.5 Hyperlipidemia, unspecified; I48.0 Paroxysmal atrial fibrillation; E03.9 Hypothyroidism, unspecified; T84.53XA Infection and inflammatory reaction due to internal right knee prosthesis, initial encounter; E87.6 Hypokalemia; R41.89 Other symptoms and signs involving cognitive functions and awareness; Z79.890 Hormone replacement therapy; Z79.01 Long term (current) use of anticoagulants; Z79.899 Other long term (current) drug therapy; Z86.73 Personal history of transient ischemic attack (TIA), and cerebral infarction without residual deficits; Z87.891 Personal history of nicotine dependence; Y83.8 Other surgical procedures as the cause of abnormal reaction of the patient, or of later complication, without mention of misadventure at the time of the procedure
CPT/HCPCS: A9575; G0378; J7030; Q9967